=== PATIENT | female | born 1995 | race Caucasian/White ===

== ENCOUNTER 2016-11-30 09:54 | Emergency (ER) | payer BC ==
--- NOTE | 2016-11-30 10:14 | ED ---
Female Urogenital HPI - General Chief complaint: OB/Uterine Contractions Stated complaint: Bleeding Time Seen by Provider: 11/30/16 10:06 Source: patient, RN notes reviewed Mode of arrival: ambulatory Limitations: no limitations - History of Present Illness Initial comments: 21-year-old female presents emergency Department chief complaints vaginal bleeding. Patient states that she is A0 and currently approximately 7 weeks . Patient states she has an appointment with her OB Dr. Samuel on the of this month. Patient states that she started having vaginal bleeding this morning felt some clots. Patient states that she does have some mild cramping but she has had some on-and-off cramping early . She denies any dysuria or hematuria. Denies fever, chills, constipation or diarrhea. Last Menstrual Period: 10/11/16 - Related Data Home Medications Medication Instructions Recorded Confirmed Pnv,Calcium 72/Iron/Folic Acid 2 tab PO DAILY 11/30/16 11/30/16 [ Plus Tablet] Allergies Allergy/AdvReac Type Severity Reaction Status Date / Time No Known Allergies Allergy Verified 11/30/16 10:07 Review of Systems ROS Statement: Those systems with pertinent positive or pertinent negative responses have been documented in the HPI. ROS Other: All systems not noted in ROS Statement are negative. Past Medical History Past Medical History: No Reported History History of Any Multi-Drug Resistant Organisms: None Reported Past Surgical History: No Surgical Hx Reported Past Psychological History: No Psychological Hx Reported Smoking Status: Former smoker Past Alcohol Use History: Occasional Past Drug Use History: None Reported General Exam Limitations: no limitations General appearance: alert, in no apparent distress Head exam: Present: atraumatic, normocephalic, normal inspection Respiratory exam: Present: normal lung sounds bilaterally. Absent: respiratory distress, wheezes, rales, rhonchi, stridor Cardiovascular Exam: Present: regular rate, normal rhythm, normal heart sounds. Absent: systolic murmur, diastolic murmur, rubs, gallop, clicks GI/Abdominal exam: Present: soft, normal bowel sounds. Absent: distended, tenderness, guarding, rebound, rigid Back exam: Absent: CVA tenderness (R), CVA tenderness (L) Neurological exam: Present: alert, oriented X3, CN II-XII intact Skin exam: Present: warm, dry, intact, normal color. Absent: rash Course Vital Signs 11/30/16 09:58 Temperature 97.1 F L Pulse Rate 86 Respiratory 20 Rate Blood Pressure 124/63 O2 Sat by Pulse 100 Oximetry Medical Decision Making - Medical Decision Making 21-year-old female presented for vaginal bleeding early . Patient hCG is 3200. Patient ultrasound shows concern for possible miscarriage. I did tell the patient that she most likely is having miscarriage though she needs to have repeat hCG in 2 days for confirmation. Patient will follow-up with LIBRARY TECHNOLOGY INSTRUCTOR return parameters were discussed. Patient declined pelvic exam and she is currently bleeding. - Lab Data Result diagrams: 11/30/16 10:19 Lab Results 11/30/16 11/30/16 11/30/16 Range/Units 10: 10: 10:19 WBC 7.8 (3.8-10.6) k/uL RBC 4.44 (3.80-5.40) m/uL Hgb 14.0 (11.4-16.0) gm/dL Hct 40.4 (34.0-46.0) % MCV 90.9 (80.0-100.0) fL MCH 31.6 (25.0-35.0) pg MCHC 34.8 (31.0-37.0) g/dL RDW 12.2 (11.5-15.5) % Plt Count 295 (150-450) k/uL Neutrophils % 56 % Lymphocytes % 34 % Monocytes % 5 % Eosinophils % 3 % Basophils % 0 % Neutrophils # 4.4 (1.3-7.7) k/uL Lymphocytes # 2.6 (1.0-4.8) k/uL Monocytes # 0.4 (0-1.0) k/uL Eosinophils # 0.2 (0-0.7) k/uL Basophils # 0.0 (0-0.2) k/uL HCG, Quant mIU/mL Urine Color Colorless Urine Appearance Clear (Clear) Urine pH 6.0 (5.0-8.0) Ur Specific [place] 1.003 (1.001-1.035) Urine Protein Negative (Negative) Urine Glucose (UA) Negative (Negative) Urine Ketones Negative (Negative) Urine Blood Large H (Negative) Urine Nitrite Negative (Negative) Urine Bilirubin Negative (Negative) Urine Urobilinogen <2.0 (<2.0) mg/dL Ur Leukocyte Esterase Negative (Negative) Urine RBC 2 (0-5) /hpf Urine WBC <1 (0-5) /hpf Ur Squamous Epith Cells <1 (0-4) /hpf Blood Type O Positive Blood Type Recheck No 11/30/16 Range/Units 10:19 WBC (3.8-10.6) k/uL RBC (3.80-5.40) m/uL Hgb (11.4-16.0) gm/dL Hct (34.0-46.0) % MCV (80.0-100.0) fL MCH (25.0-35.0) pg MCHC (31.0-37.0) g/dL RDW (11.5-15.5) % Plt Count (150-450) k/uL Neutrophils % % Lymphocytes % % Monocytes % % Eosinophils % % Basophils % % Neutrophils # (1.3-7.7) k/uL Lymphocytes # (1.0-4.8) k/uL Monocytes # (0-1.0) k/uL Eosinophils # (0-0.7) k/uL Basophils # (0-0.2) k/uL HCG, Quant 3234.8 mIU/mL Urine Color Urine Appearance (Clear) Urine pH (5.0-8.0) Ur Specific [place] (1.001-1.035) Urine Protein (Negative) Urine Glucose (UA) (Negative) Urine Ketones (Negative) Urine Blood (Negative) Urine Nitrite (Negative) Urine Bilirubin (Negative) Urine Urobilinogen (<2.0) mg/dL Ur Leukocyte Esterase (Negative) Urine RBC (0-5) /hpf Urine WBC (0-5) /hpf Ur Squamous Epith Cells (0-4) /hpf Blood Type Blood Type Recheck Disposition Clinical Impression: Threatened miscarriage Disposition: HOME SELF-CARE Condition: Stable Instructions: Threatened Miscarriage (ED) Additional Instructions: Please return to the Emergency Department if symptoms worsen or any other concerns. Referrals: William Simeon MD [Primary Care Provider] - 1-2 days Time of Disposition: 11:28
[2016-11-30 10:37] LABS: Basophils % (A) 0 %; CH 30.7; CHCM 33.9; Eosinophils # (A) 0.2 k/uL (0-0.7); Eosinophils % (A) 3 %; HCT 40.4 % (34.0-46.0); HDW 2.24; Luc # (Auto) 0.14; Luc % (Auto) 2; Lymphocytes # (A) 2.6 k/uL (1.0-4.8); Lymphocytes % (A) 34 %; MCH 31.6 pg (25.0-35.0); MCHC 34.8 g/dL (31.0-37.0); MCV 90.9 fL (80.0-100.0); Mean Platelet Volume 6.9; Monocytes # (A) 0.4 k/uL (0-1.0); Monocytes % (A) 5 %; Neutrophils # (A) 4.4 k/uL (1.3-7.7); Neutrophils % (A) 56 %; RBC 4.44 m/uL (3.80-5.40); RDW 12.2 % (11.5-15.5); WBC 7.8 k/uL (3.8-10.6); WBC (Perox) 7.94
[2016-11-30 10:41] LABS: Appearance,Urine Clear (Clear); Bilirubin,Urine Negative (Negative); Glucose,Urine (UA) Negative (Negative); Ketones,Urine Negative (Negative); Leukocyte Esterase,Urine Negative (Negative); Nitrite,Urine Negative (Negative); Particle Count 1086; Protein,Urine Negative (Negative); RBC,Urine 2 /hpf (0-5); Specific Gravity,Urine 1.003 (1.001-1.035); Squamous Epithelial Cell,Urine <1 /hpf (0-4); UA Billing (MACRO vs. MICRO) MICRO; Urobilinogen,Urine <2.0 mg/dL (<2.0); WBC,Urine <1 /hpf (0-5)
--- NOTE | 2016-11-30 11:13 | US ---
EXAMINATION TYPE: US OB Transvaginal DATE OF EXAM: 11/30/2016 COMPARISON: NONE CLINICAL HISTORY: 21-year-old female Pain. bleeding, cramping x 1 day Date of LMP: 10/11/2016 Beta HcG (if available): Not provided. EXAM PERFORMED: Transvaginal (TV) FINDINGS: GESTATIONAL AGE / DATING Physician Established: Not established Dates by LMP: (7 weeks/1 days) EDC: 07/18/2017 Dates by First Scan: No previous Dates by Current Scan: No IUP seen MATERNAL ANATOMY Uterus: 8.4 x 3.8 x 3.2 cm Right Ovary: 3.2 x 2.0 x 1.7 cm Left Ovary: 1.9 x 1.6 x 1.3 cm Adnexa: WNL Presence of free fluid: small amount of free fluid in cul de sac. Presence of corpus luteal cyst: No Presence of subchorionic bleed: GESTATION / SURVEY CRL: No pole seen. MSD: Not seen ( weeks/ days) Yolk Sac (normal less than 6mm): Not seen Heart Rate: None Rhythm: None IUP: No IUP seen at this time There is heterogeneous thickening along the endometrium of the body and lower uterine segment measuring up to 2.5 cm long. However, the electric needle specialist notes that this appearance changed throughout the exam. The electric needle specialist also notes that the patient was actively bleeding at time of exam. IMPRESSION: Heterogeneous thickening of the endometrium of the lower uterine segment with changing appearance during the course of the exam and active bleeding. Findings are concerning for in progress. This should be confirmed with serial beta-hCG's and ultrasound follow-up as indicated. No visualized normal intrauterine . MTDD
[2016-11-30 11:52] VITALS: BP 135/61; PULSE 80; RESP 18; TEMP 98.3
== END 2016-11-30 11:45 | disposition home or self-care (01) ==
LOC: EC 09:54
DX: O20.0 Threatened abortion (principal); Z3A.01 Less than 8 weeks gestation of pregnancy; Z87.891 Personal history of nicotine dependence; Z79.899 Other long term (current) drug therapy
CPT/HCPCS: 36415; 76801; 76817; 81001; 84702; 85025; 86900; 86901; 99284

== ENCOUNTER → 2016-12-02 | Outpatient (CLI) | payer BC | LOC: LABWHC1 09:12 | PROVIDERS: ATTEND Physician Assistant | DX: O20.0 Threatened abortion (principal) | CPT/HCPCS: 36415; 84702 ==

== ENCOUNTER → 2018-06-13 | Outpatient (CLI) | payer BC, OTHER | LOC: LABWHC1 17:13 | PROVIDERS: ATTEND Obstetrics & Gynecology | DX: Z34.81 Encounter for supervision of other normal pregnancy, first trimester (principal); Z3A.00 Weeks of gestation of pregnancy not specified | CPT/HCPCS: 36415; 84702 ==

== ENCOUNTER → 2018-07-12 | Outpatient (CLI) | payer OTHER ==
--- NOTE | 2018-07-12 12:04 | US ---
EXAMINATION TYPE: Transabdominal DATE OF EXAM: 08/31/17 COMPARISON: NONE CLINICAL HISTORY: Z36 Confirm dates and viability. EXAM PERFORMED: Transabdominal (TA) EXAM MEASUREMENTS: GESTATIONAL AGE / DATING Physician Established: Not yet established Dates by LMP: (9 weeks/0 days) EDC: 02/14/2019 Dates by First Scan: No previous. Dates by Current Scan for: (9 weeks/0 days) EDC: 02/14/2019 MATERNAL ANATOMY Uterus: 9.9 x 5.8 x 4.8cm Right Ovary: 4.4 x 3.0 x 2.0cm Left Ovary: 3.3 x 3.8 x 1.4cm Post CDS / Adnexa: wnl Presence of free fluid: no Presence of corpus luteal cyst: in right ovary = 1.8 x 1.4 x 1.0cm Presence of subchorionic bleed: no GESTATION / SURVEY CRL: 2.4 (9 weeks/0 days) Yolk Sac (normal less than 6mm): not seen Heart Rate: 166 bpm Rhythm: Normal IUP: single Date of LMP: 05/10/2018 Beta HcG (if available): NA Single live intrauterine gestation is seen as gestational sac and pole are identified. Yolk sac is not clearly seen. No free fluid is seen in pelvic cul-de-sac. Both ovaries are seen. Within right ovary there is 1.8 cm peripheral hypoechoic lesion felt to reflec t corpus luteal cyst. No suspicious extraovarian adnexal lesions are present. IMPRESSION: Single live intrauterine gestation is confirmed, mean crown-rump length is 2.4 cm corresponding to 9 week 0 day old fetus.
== END ==
LOC: RADUSWWP 09:14
PROVIDERS: ATTEND Obstetrics & Gynecology
DX: Z36.9 Encounter for antenatal screening, unspecified (principal); Z3A.09 9 weeks gestation of pregnancy
CPT/HCPCS: 76801

== ENCOUNTER → 2018-11-16 | Outpatient (CLI) | payer BC, OTHER ==
[2018-11-16 11:34] LABS: Glucose 3 Hour, Gest 67 mg/dL
== END | disposition home or self-care (01) ==
LOC: LABWHC1 07:17
PROVIDERS: ATTEND Obstetrics & Gynecology
DX: O99.810 Abnormal glucose complicating pregnancy (principal)
CPT/HCPCS: 36415; 82951; 82952

== ENCOUNTER → 2018-12-22 | Outpatient (CLI) | payer BC, OTHER ==
[2018-12-22 18:57] VITALS: BP 129/69; PULSE 83; RESP 16; TEMP 98
== END | disposition home or self-care (01) ==
LOC: EDBD → FBPOP 17:59
PROVIDERS: ATTEND Obstetrics & Gynecology
DX: O24.410 Gestational diabetes mellitus in pregnancy, diet controlled (principal); Z3A.32 32 weeks gestation of pregnancy
CPT/HCPCS: 99213

== ENCOUNTER 2018-12-26 17:23 | Outpatient (CLI) | payer BC, OTHER | END 2018-12-26 18:10 | disposition home or self-care (01) | LOC: EDBD 17:23 → FBPOP 17:23 | PROVIDERS: ATTEND Obstetrics & Gynecology | DX: O24.419 Gestational diabetes mellitus in pregnancy, unspecified control (principal); Z3A.32 32 weeks gestation of pregnancy | CPT/HCPCS: 59025 ==

== ENCOUNTER 2018-12-29 17:41 | Observation (INO) | payer BC, OTHER ==
[2018-12-29 18:01] LABS: Basophils % (A) 0 %; Eosinophils # (A) 0.2 k/uL (0-0.7); Eosinophils % (A) 1 %; HCT 36.1 % (34.0-46.0); HGB 11.7 gm/dL (11.4-16.0); Lymphocytes # (A) 2.7 k/uL (1.0-4.8); Lymphocytes % (A) 22 %; MCH 28.7 pg (25.0-35.0); MCHC 32.5 g/dL (31.0-37.0); MCV 88.2 fL (80.0-100.0); Mean Platelet Volume 7.4; Monocytes # (A) 0.8 k/uL (0-1.0); Monocytes % (A) 6 %; Neutrophils # (A) 8.3 k/uL (1.3-7.7); Neutrophils % (A) 68 %; Platelet Count 288 k/uL (150-450); RBC 4.09 m/uL (3.80-5.40); RDW 13.5 % (11.5-15.5); WBC 12.1 k/uL (3.8-10.6)
[2018-12-29] MEDS ORDERED: LACTATED RINGERS 500 ML IV SCH ×2 (18:15→20:00)
[2018-12-29 18:26] LABS: Appearance,Urine Clear (Clear); Bilirubin,Urine Negative (Negative); Blood,Urine Negative (Negative); Color,Urine Yellow; Glucose,Urine (UA) Negative (Negative); Ketones,Urine Trace (Negative); Leukocyte Esterase,Urine Negative (Negative); Nitrite,Urine Negative (Negative); Protein,Urine Trace (Negative); Specific Gravity,Urine 1.029 (1.001-1.035)
[2018-12-29 18:35] VITALS: BP 154/87; PULSE 111; RESP 18; TEMP 98.9; BMI 34.6
[2018-12-29] MEDS: LACTATED RINGERS 1,000 ML IV SCH (19:00)
--- NOTE | 2018-12-29 19:29 | P.HPOB ---
History of Present Illness H&P Date: 12/29/18 Chief Complaint: bradycardia on nonstress testing This patient is a pleasant 23-year-old 2 para 0 female estimated date of confinement 02/14/2019 estimated gestational age 33-2/7 weeks who presented to labor and delivery this evening for a routine nonstress test secondary to gestational diabetes. Patient's care is per Dr. Samuel. Patient was diagnosed with gestational diabetes and has been followed by maternal medicine. Patient was also referred in the first trimester for a false positive RPR. Notes from maternal medicine felt that they thought this was a false positive test she had no evidence of syphilis. She does not believe any other testing was done at that time, other than a negative confirmatory test. Patient presented after work to seeing for her nonstress testing upon arrival to labor and delivery nurse placed on the monitor and was found to have heart tones in the 60s. Patient was repositioned and heart tones came up briefly the back into the 60s. This occurred for less than 1 minute. Following the rep ositioning heart tones were 120s to 130s and reassuring. At this time I ordered a ultrasound and biophysical profile both of which were normal. Patient denies vaginal bleeding or contractions. Patient is having positive movement prior to this. Review of Systems Genitourinary: Reports Menstruation: Reports amenorrhea Past Medical History Past Medical History: No Reported History Additional Past Medical History / Comment(s): Gestational diabetes. False positive RPR. History of Any Multi-Drug Resistant Organisms: None Reported Past Surgical History: No Surgical Hx Reported Additional Past Surgical History / Comment(s): 2004 eyelids. tonsils 1997 Past Anesthesia/Blood Transfusion Reactions: No Reported Reaction Past Psychological History: No Psychological Hx Reported Smoking Status: Never smoker Past Alcohol Use History: Occasional Past Drug Use History: None Reported - Past Family History Mother Family Medical History: Cancer Additional Family Medical History / Comment(s): breast ca Medications and Allergies Home Medications Medication Instructions Recorded Confirmed Type Pnv,Calcium 72/Iron/Folic Acid 2 tab PO DAILY 11/30/16 12/29/18 History [ Plus Tablet] Calcium Carbonate [Tums] 500 mg PO TID 12/29/18 12/29/18 History Allergies Allergy/AdvReac Type Severity Reaction Status Date / Time No Known Allergies Allergy Verified 12/29/18 17:52 Exam Vital Signs Temp Pulse Resp BP Pulse Ox 12/29/18 18:13 98.9 F 111 H 18 154/87 99 Intake and Output 12/29/18 12/29/18 12/29/18 06:59 14:59 22:59 Other: Weight 94.347 kg - OBG Physical Exam Vulva: both: normal Vagina: normal moisture, no discharge Cervix: no lesion (Cervix is closed), no discharge Results blood work shows she is O positive, rubella immune, hepatitis B n egative, RPR was positive with a negative confirmatory test. Glucola was abnormal and she had 2 abnormal 3 hour GTT values. Ultrasound today shows a appropriately grown fetus 2308 g which is the 61st percentile with a normal fluid index of 18. Biophysical 8 out of 8. Result Diagrams: 12/29/18 17:50 Abnormal Lab Results - Last 24 Hours (Table) 12/29/18 12/29/18 12/29/18 Range/Units 17:50 18:00 18:00 WBC 12.1 H (3.8-10.6) k/uL Neutrophils # 8.3 H (1.3-7.7) k/uL Urine Protein Trace H (Negative) Urine Ketones Trace H (Negative) U Random Total Protein 19 H (<12) mg/dL Assessment and Plan Assessment: This is a pleasant 23-year-old 2 para 0 female 33-2/7 weeks gestation who is presenting for routine nonstress testing for gestational diabetes is found to have an episode of bradycardia to the 60s. This did resolve with position changes and IV fluids. Ultrasound testing and current nonstress testing are reassuring. Biophysical was 8 out of 8. Due to the bradycardic episode I recommend this patient had prolonged monitoring overnight. I also discussed her false positive RPR test and did recommend testing for antiphospholipid syndrome. At this time there is no evidence of compromise. Most likely this is a transient cord event. (1) 33 weeks gestation of Current Visit: Yes Status: Acute Code(s): Z3A.33 - 33 WEEKS GESTATION OF SNOMED Code(s): 27364787 (2) bradycardia Current Visit: Yes Status: Acute Code(s): WPT5448 - SNOMED Code(s): 100017690 (3) False positive serological syphilis test Current Visit: Yes Status: Acute Code(s): R76.8 - OTHER SPECIFIED ABNORMAL IMMUNOLOGICAL FINDINGS IN SERUM SNOMED Code(s): 434338870
--- NOTE | 2018-12-29 19:30 | US ---
EXAMINATION TYPE: US OB >= 14 wk fetus DATE OF EXAM: 12/29/2018 COMPARISON: US CLINICAL HISTORY: decelerations, 33 weeks, Gestational diabetes. TECHNIQUE: Transabdominal (TA) GESTATIONAL AGE / DATING Physician Established: (33 weeks/2 days) EDC: 02/14/2019 Dates by LMP: 05/10/2018 (33 weeks/2 days) EDC: 02/14/2019 Dates by First Scan: (33 weeks/2 days) EDC: 02/14/2019 Dates by Current Scan: (33 weeks/2 days) EDC: 02/14/2019 SURVEY IUP: Single PLACENTA: Anterior PREVIA: No Previa ОЛЕГ: 17.99 cm Normal CERVICAL LENGTH (transabdominal: norm > 3.0cm): 3.28 cm Limited, transvaginal not to be performed per nurse. BIOMETRY PRESENTATION: Vertex LIE: Longitudinal BPD: 8.48 cm 34 weeks / 1 day HC: 30.35 cm 33 weeks / 5 days AC: 30.43 cm 34 weeks / 3 days FL: 6.40 cm 33 weeks / 0 days ESTIMATED WEIGHT IN GRAMS: 2308 grams ESTIMATED WEIGHT IN LBS/OZ: 5 lbs. 1 oz. WEIGHT PERCENTAGE BASED ON ESTABLISHED DATES: 61.8% HC/AC: 1.00 Normal FL/AC: 21.03 Normal HEART RATE: 130 bpm RHYTHM: Normal IMPRESSION: No acute process; single viable IUP as detailed.
--- NOTE | 2018-12-29 19:33 | US ---
EXAMINATION TYPE: US OB BPP wo non-stress DATE OF EXAM: 12/29/2018; 6:41 PM COMPARISON: US CLINICAL HISTORY: decelerations. decelerations. Hx gestational diabetes. DENIS 02/14/2019. 3 3w 2 d. EXAM PERFORMED: Transabdominal (TA) BPP PARAMETERS: PRESENTATION: Vertex LIE: Longitudinal?? HEART RATE: 151 bpm RHYTHM: Normal ОЛЕГ: 15.30 DIAPHRAGM IMAGED: Yes BPP SCORIN. Breathin (1 episode of breathing of 30 second duration in 30 minutes of scanning time) 2. Movement: 2 (at least 3 discrete body movements in 30 minutes) 3. Tone: 2 (1 episode of active flexion/extension of limb) 4. ОЛЕГ: 2 (ОЛЕГ index > 5cm) IMPRESSION: TOTAL SCORE: 8 / 8
[2018-12-29 19:34] LABS: ALT <6 U/L (9-52); AST 20 U/L (14-36); African American GFR (CKD) >90 (>60 ml/min/1.73 sqM); Blood Urea Nitrogen 11 mg/dL (7-17); LDH 429 U/L (313-618); Uric Acid 3.6 mg/dL (3.7-7.4)
[2018-12-29 19:49] LABS: INR 0.8 (<1.2); Prothrombin Time 9.3 sec (9.0-12.0)
[2018-12-29 19:54] LABS: Glucose,Whole Blood 82 mg/dL (75-99)
[2018-12-29] MEDS ORDERED: LACTATED RINGERS 500 ML IV ONE (19:56)
[2018-12-29] MEDS ORDERED: LACTATED RINGERS 1,000 ML IV SCH (20:00)
[2018-12-30] MEDS: LACTATED RINGERS 1,000 ML IV SCH (03:04)
[2018-12-30 07:50] LABS: Glucose,Whole Blood 107 mg/dL (75-99)
--- NOTE | 2018-12-30 09:02 | P.DS ---
Providers Date of admission: 12/29/18 17:52 Expected date of discharge: 12/30/18 Attending physician: Rosmery Samuel Primary care physician: Stated None Hospital Course: This is a 23-year-old female 1 para 0 at 32-3/7 weeks gestation. She came in yesterday for a routine nonstress test due to gestational diabetes. When they were working her up to the monitor apparently an audible deceleration was noted at about 60s to 90s. Since that time the strip has been very reactive with an occasional isolated variable deceleration. Good variability has been noted throughout. There are occasional contractions but her cervix is closed. She did have a couple elevated blood pressures and therefore lab work was drawn. All other preeclampsia labs were negative. She denies any other symptoms. Ultrasound was performed and was within normal limits. She has been feeling good movement and occasional contractions. Her cervix this morning is still closed/50%/-2 station. She will be discharged home today and return on Wednesday for another nonstress test. She has an office visit with me next . She is advised that if she does feel any decreased movement or have any other symptoms of headaches, blurry vision, epigastric pain, or swelling in her hands and face, that she should come to the hospital immediately for evaluation. She is also advised that she feels regular strong contractions that she should also come to the hospital for evaluation. Patient Condition at Discharge: Stable Plan - Discharge Summary New Discharge Prescriptions: No Action Pnv,Calcium 72/Iron/Folic Acid [ Plus Tablet] 2 tab PO DAILY Calcium Carbonate [Tums] 500 mg PO TID Discharge Medication List Pnv,Calcium 72/Iron/Folic Acid [ Plus Tablet] 2 tab PO DAILY 11/30/16 [History] Calcium Carbonate [Tums] 500 mg PO TID 12/29/18 [History] Follow up Appointment(s)/Referral(s): Rosmery Samuel DO [Doctor of Osteopathic Medicine] - 01/05/19 Discharge Disposition: HOME SELF-CARE
[2018-12-30 18:14] LABS: Cardiolipin Ab IgG Interp NEGATIVE (NEGATIVE); Cardiolipin Ab IgM Interp Positive (NEGATIVE); Cardiolipin IgM Antibody 40.7 U/mL
[2019-01-02 13:08] LABS: APTT 34 Sec(s) (<43); Dilute Russell Viper Venom 32 Sec(s) (<44)
== END 2018-12-30 09:15 | disposition home or self-care (01) ==
LOC: FBPOP 17:41 → 4FBP 17:52
PROVIDERS: ADMIT Obstetrics & Gynecology; ATTEND Obstetrics & Gynecology
DX: O76 Abnormality in fetal heart rate and rhythm complicating labor and delivery (principal); Z3A.33 33 weeks gestation of pregnancy; O24.419 Gestational diabetes mellitus in pregnancy, unspecified control; Z80.3 Family history of malignant neoplasm of breast
CPT/HCPCS: 59025; 96360; 96361; 86900; 86901; 86146; 82570; 84156; 82565; 83615; 84450; 84460; 84520; 84550; 85025; 85610; 85730; 86850; 85613; 81003; 86147; 76805; 76819; G0378 ×2

== ENCOUNTER 2019-01-09 17:19 | Outpatient (CLI) | payer BC, OTHER ==
[2019-01-09 17:35] VITALS: BP 131/79; PULSE 87; RESP 14; TEMP 98.1
--- NOTE | 2019-01-09 19:48 | US ---
EXAMINATION TYPE: US OB BPP wo non-stress DATE OF EXAM: 01/09/2019 COMPARISON: US CLINICAL HISTORY: fht. FHT. Gestational diabetes. . Former smoker. 34w 6 d. DENIS: 02/14/2019. Hx miscarriage. EXAM PERFORMED: Transabdominal (TA) BPP PARAMETERS: PRESENTATION: Cephalic LIE: Long?? HEART RATE: 138 bpm RHYTHM: Normal ОЛЕГ: 14.61 cm. DIAPHRAGM IMAGED: Yes BPP SCORIN. Breathin (1 episode of breathing of 30 second duration in 30 minutes of scanning time) 2. Movement: 2 (at least 3 discrete body movements in 30 minutes) 3. Tone: 2 (1 episode of active flexion/extension of limb) 4. ОЛЕГ: 2 (ОЛЕГ index > 5cm) TOTAL SCORE: 6 / 8 *Unable to visualize 30 second episode of breathing within 30 minutes scan. The biophysical profile score is 6 out of 8 with no breathing movement seen during the exam.
--- NOTE | 2019-01-10 08:36 | P.MSEPDOC ---
Presenting Problems - Arrival Data Date of Arrival on Unit: 01/09/19 Time of Arrival on Unit: 17:30 Mode of Transport: Portable - Complaint OB-Reason for Admission/Chief Complaint: NST Medical History - Information : 2 Para: 0 Term: 0 : 0 Abortions: Spontaneous or Elective: 0 Number of Living Children: 0 - Gestational Age Gestational Age by DENIS (wks/days): 34 Weeks and 6 Days - History Complications: GDM Review of Systems - Review of Systems Constitutional: No problems Breast: No problems ENT: No problems Cardiovascular: No problems Respiratory: No problems Gastrointestinal: No problems Genitourinary: No problems Musculoskeletal: No problems Neurological: No problems Skin: No problems Vital Signs - Temperature Temperature: 98.1 F Temperature Source: Oral - Pulse Right Pulse Rate: 87 Pulse Assessment Method: Automatic Cuff - Respirations Respiratory Rate: 14 Oxygen Delivery Method: Room Air - Blood Pressure Right Arm Blood Pressure: 131/79 Blood Pressure Mean: 96 Blood Pressure Source: Automatic Cuff Physician Notification (Post) - Physician Notified Physician Notified Date: 01/09/19 Physician Notified Time: 18:24 Physician/Practitioner Notified:: watson Spoke With: watson - Notification Comment Comment: reported nst, reported decel, dr chaudhari order bpp, bpp complete 01/07. offers pt to spend night for continued monitoring or discharge home with instruction and follow up wed or . Disposition - Disposition OB Disposition: Discharge to home Discharge Date: 01/09/19 Discharge Time: 19:42 I agree with the RN Medical Screening Exam: Yes Risk & Benefit of care provided described in d/c instruction: Yes Diagnosis: GESTATIONAL DIABETES MELLITUS IN , DIET CONTROLLED
== END 2019-01-09 19:42 | disposition home or self-care (01) ==
LOC: FBPOP 17:19
PROVIDERS: ATTEND Obstetrics & Gynecology
DX: O24.410 Gestational diabetes mellitus in pregnancy, diet controlled (principal); Z3A.34 34 weeks gestation of pregnancy
CPT/HCPCS: 59025; 76819; 99213

== ENCOUNTER 2019-01-12 18:26 | Outpatient (CLI) | payer BC, OTHER ==
--- NOTE | 2019-02-09 17:44 | P.MSEPDOC ---
Presenting Problems - Arrival Data Date of Arrival on Unit: 01/12/19 Time of Arrival on Unit: 18:26 Mode of Transport: Ambulatory Disposition - Disposition Discharge Date: 01/12/19 Discharge Time: 18:58 I agree with the RN Medical Screening Exam: No Physician's MSE Comment: There is incomplete documentation by nursing staff on this document and therefore I cannot agree to it. Risk & Benefit of care provided described in d/c instruction: No Diagnosis: RELATED CONDITIONS, UNSP, UNSPECIFIED TRIMESTER
== END 2019-01-12 18:59 | disposition home or self-care (01) ==
LOC: FBPOP 18:26
PROVIDERS: ATTEND Obstetrics & Gynecology
DX: O26.90 Pregnancy related conditions, unspecified, unspecified trimester (principal); Z3A.00 Weeks of gestation of pregnancy not specified
CPT/HCPCS: 59025; 99213

== ENCOUNTER 2019-01-20 17:09 | Outpatient (CLI) | payer BC, OTHER ==
--- NOTE | 2019-02-09 17:37 | P.MSEPDOC ---
Presenting Problems - Arrival Data Date of Arrival on Unit: 01/20/19 Time of Arrival on Unit: 17:09 Mode of Transport: Ambulatory Disposition - Disposition Discharge Date: 01/20/19 Discharge Time: 18:05 I agree with the RN Medical Screening Exam: No Physician's MSE Comment: There is nothing documented in this MSE by nursing and therefore I cannot agree to it. Risk & Benefit of care provided described in d/c instruction: No Diagnosis: RELATED CONDITIONS, UNSP, UNSPECIFIED TRIMESTER
== END 2019-01-20 18:05 | disposition home or self-care (01) ==
LOC: FBPOP 17:09
PROVIDERS: ATTEND Obstetrics & Gynecology
DX: O26.893 Other specified pregnancy related conditions, third trimester (principal)
CPT/HCPCS: 59025

== ENCOUNTER 2019-01-26 17:04 | Outpatient (CLI) | payer BC, OTHER ==
[2019-01-26 17:43] VITALS: BP 125/78; PULSE 90; RESP 16; TEMP 97.2
--- NOTE | 2019-02-23 10:26 | P.MSEPDOC ---
Presenting Problems - Arrival Data Date of Arrival on Unit: 01/26/19 Time of Arrival on Unit: 17:04 Mode of Transport: Ambulatory Vital Signs - Temperature Temperature: 97.2 F Temperature Source: Temporal Artery Scan - Pulse Right Brachial Pulse Rate: 90 Pulse Assessment Method: Automatic Cuff - Respirations Respiratory Rate: 16 Oxygen Delivery Method: Room Air - Blood Pressure Right Arm Blood Pressure: 125/78 Blood Pressure Mean: 93 Blood Pressure Source: Automatic Cuff Disposition - Disposition OB Disposition: Discharge to home Discharge Date: 01/26/19 Discharge Time: 17:41 I agree with the RN Medical Screening Exam: Yes Risk & Benefit of care provided described in d/c instruction: Yes Diagnosis: GESTATIONAL DIABETES MELLITUS IN , DIET CONTROLLED
== END 2019-01-26 17:41 | disposition home or self-care (01) ==
LOC: FBPOP 17:04
PROVIDERS: ATTEND Obstetrics & Gynecology
DX: O24.419 Gestational diabetes mellitus in pregnancy, unspecified control (principal); Z3A.37 37 weeks gestation of pregnancy
CPT/HCPCS: 59025

== ENCOUNTER 2019-01-30 14:20 | Outpatient (CLI) | payer BC, OTHER | END 2019-01-30 15:05 | disposition home or self-care (01) | LOC: FBPOP 14:20 | PROVIDERS: ATTEND Obstetrics & Gynecology | DX: O24.419 Gestational diabetes mellitus in pregnancy, unspecified control (principal); Z3A.37 37 weeks gestation of pregnancy | CPT/HCPCS: 99213 ==

== ENCOUNTER 2019-02-09 05:40 | Inpatient (IN) | payer BC, OTHER ==
--- NOTE | 2019-02-08 19:31 | P.HPOB ---
History of Present Illness H&P Date: 02/08/19 Chief Complaint: Gestational diabetes, induction of labor This is a 23 y.o. female, 2, para 0, with an estimated date of confinement of 02/14/2019, estimated gestational age of 39-2/7 weeks, who presents for induction of labor due to gestaional diabetes, diet-controlled. She has been doing twice weekly nonstress tests and being seen once week at maternal- medicine. Her sugars have been well-controlled on diet. She is feeling frequent contractions and pressure. She denies any rupture of membranes. labs: GC/Chlamydia/Trichomonas-negative Hepatitis B surface antigen-negative RPR-reactive, confirmatory test-negative Rubella-immune Blood type-O+ Antibody screen-negative HIV-nonreactive Hemoglobin-12.4 Random glucose-80 1 hour Glucola-172 Three-hour Glucola-2 values high Group B streptococcus-negative Obstetrical history: . History of 1 miscarriage Gynecologic history: No history of sexual transmitted diseases. Social history: She is . She works at a [employer] office. Review of Systems Constitutional: Denies chills, Denies fever Eyes: denies blurred vision, denies pain Ears, nose, mouth and throat: Denies headache, Denies sore throat Cardiovascular: Denies chest pain, Denies shortness of breath Respiratory: Denies cough Gastrointestinal: Reports abdominal pain (Irregular contractions) Genitourinary: Reports pelvic pain, Reports Musculoskeletal: Reports low back pain Integumentary: Denies pruritus, Denies rash Neurological: Denies numbness, Denies weakness Psychiatric: Denies anxiety, Denies depression Past Medical History Past Medical History: No Reported History Additional Past Medical History / Comment(s): Gestational diabetes. False posit manuela RPR. History of Any Multi-Drug Resistant Organisms: None Reported Past Surgical History: No Surgical Hx Reported Additional Past Surgical History / Comment(s): 2004 eyelids. tonsils 1997 Past Anesthesia/Blood Transfusion Reactions: No Reported Reaction Past Psychological History: No Psychological Hx Reported Smoking Status: Never smoker Past Alcohol Use History: None Reported Past Drug Use History: None Reported - Past Family History Mother Family Medical History: Cancer Additional Family Medical History / Comment(s): breast ca Medications and Allergies Home Medications Medication Instructions Recorded Confirmed Type Pnv,Calcium 72/Iron/Folic Acid 1 tab PO DAILY 11/30/16 01/30/19 History [ Plus Tablet] Calcium Carbonate [Tums] 500 mg PO TID 12/29/18 01/30/19 History Allergies Allergy/AdvReac Type Severity Reaction Status Date / Time No Known Allergies Allergy Verified 01/30/19 14:31 Exam Osteopathic Statement: *. No significant issues noted on an osteopathic structural exam other than those noted in the History and Physical/Consult. HEENT: Within normal limits Heart: Regular rate and rhythm Lungs: Clear to auscultation bilaterally Abdomen: Cervix: 1-1/2 cm/70%/-1 station heart tones: 140s by Doppler Extremities: Trace edema Assessment and Plan (1) 39 weeks gestation of Status: Acute Code(s): Z3A.39 - 39 WEEKS GESTATION OF SNOMED Code(s): 75836763 (2) Gestational diabetes Status: Acute Code(s): O24.419 - GESTATIONAL DIABETES MELLITUS IN , UNSP CONTROL SNOMED Code(s): 58687807 Plan: Proceed with oxytocin induction of labor. Will monitor sugars during labor. Expectant management. Epidural anesthesia if desired.
[2019-02-09] MEDS ORDERED: LIDOCAINE 0.5% (PF) 5 MG/ML (50 ML SDV) SQ PRN (06:03)
[2019-02-09] MEDS ORDERED: OXYTOCIN 10 UNIT/ML 1 ML VIAL IM PRN (06:03)
[2019-02-09] MEDS ORDERED: OXYTOCIN 30 UNITS/500 ML NS 30 UNIT in SALINE 1 500ML.BAG IV SCH (06:03)
[2019-02-09] MEDS ORDERED: METHYLERGONOVINE 0.2 MG/ML 1 ML AMP IM PRN (06:03)
[2019-02-09] MEDS ORDERED: CARBOPROST TROMETHAMINE 250 MCG/ML 1 ML AMP IM PRN (06:03)
[2019-02-09] MEDS ORDERED: TERBUTALINE 1 MG/ML VIAL SQ PRN (06:03)
[2019-02-09] MEDS ORDERED: LIDOCAINE 1% 20 ML VIAL (10MG/ML) FOR IV START INTRADERMA PRN (06:03)
[2019-02-09] MEDS: LACTATED RINGERS 1,000 ML IV SCH ×2 (06:31→11:59)
[2019-02-09 06:32] LABS: Glucose,Whole Blood 93 mg/dL (75-99)
[2019-02-09 06:36] VITALS: BMI 36.3
[2019-02-09 06:41] LABS: Basophils # (A) 0.1 k/uL (0-0.2); Basophils % (A) 1 %; Eosinophils # (A) 0.2 k/uL (0-0.7); Eosinophils % (A) 2 %; HCT 35.7 % (34.0-46.0); HGB 11.8 gm/dL (11.4-16.0); Lymphocytes # (A) 2.7 k/uL (1.0-4.8); Lymphocytes % (A) 25 %; MCV 87.8 fL (80.0-100.0); Mean Platelet Volume 8.6; Monocytes # (A) 0.5 k/uL (0-1.0); Monocytes % (A) 5 %; Neutrophils # (A) 7.3 k/uL (1.3-7.7); Neutrophils % (A) 67 %; Platelet Count 265 k/uL (150-450); RBC 4.07 m/uL (3.80-5.40); RDW 15.8 % (11.5-15.5)
[2019-02-09 08:22] LABS: Glucose,Whole Blood 85 mg/dL (75-99)
[2019-02-09 10:18] LABS: Glucose,Whole Blood 103 mg/dL (75-99)
[2019-02-09] MEDS ORDERED: SODIUM CHLORIDE 0.9% 100 ML BAG ONE (10:42)
[2019-02-09] MEDS ORDERED: fentaNYL (PF) 50 MCG/ML 5 ML AMP ONE (10:42)
[2019-02-09] MEDS ORDERED: ROPIVACAINE 5MG/ML 20ML VIAL ONE (10:42)
[2019-02-09] MEDS ORDERED: diphenhydrAMINE 25 MG CAP PO PRN (12:34)
[2019-02-09] MEDS ORDERED: diphenhydrAMINE 50 MG/ML 1 ML VIAL IVP PRN ×2 (12:34)
[2019-02-09] MEDS ORDERED: WITCH HAZEL 1 EACH MED..PAD TOPICAL PRN (12:34)
[2019-02-09] MEDS ORDERED: SIMETHICONE 80 MG CHEWABLE PO PRN (12:34)
[2019-02-09] MEDS ORDERED: BENZOCAINE/MENTHOL SPRAY 1 GM/SPRAY AEROSOL TOPICAL PRN (12:34)
[2019-02-09] MEDS ORDERED: HYDROCORTISONE 2.5% RECTAL CREAM 30 GM TUBE RECTAL PRN (12:34)
[2019-02-09] MEDS ORDERED: OXYTOCIN 20 UNITS/1000 ML NS 1,000 ML IV SCH (12:34)
[2019-02-09] MEDS ORDERED: LANOLIN CREAM 5 GM TUBE TOPICAL PRN (12:34)
[2019-02-09] MEDS ORDERED: ACETAMINOPHEN TAB 325 MG TAB PO PRN (12:34)
[2019-02-09] MEDS ORDERED: ZOLPIDEM 5 MG TAB PO PRN (12:34)
[2019-02-09] MEDS ORDERED: diphenhydrAMINE 50 MG CAP PO PRN (12:34)
[2019-02-09] MEDS: IBUPROFEN 600 MG TAB PO PRN ×2 (14:32→20:56)
[2019-02-09 17:23] LABS: Hemoglobin A1C 5.5 % (4.0-6.0)
--- NOTE | 2019-02-09 17:31 | P.PROBDLV ---
Vaginal Delivery Note - . Vaginal Delivery Note: The patient progressed to complete dilation after oxytocin induction of labor and artificial rupture of membranes with clear fluid noted. She did receive an epidural anesthesia but only had the test dose before she was found to be complete. Once she was complete, she began pushing. 's head came to a crown. With one further push, the infant's head delivered across the perineum followed by the anterior shoulder. Nose and mouth were bulb suctioned at the perineum prior to delivery. Nuchal cord times one was noted. With one further push, the delivered reducing nuchal cord around the body during delivery. Infant was placed on mother's abdomen. A viable male was noted with scores of 9 at 1 minute and 9 at 5 minutes. Infant weight was 7 pounds 1.4 ounces. The placenta delivered shortly thereafter, intact, with a three- vessel cord. Uterus contracted well after oxytocin was given and uterine massage was carried out. Inspection of the perineum revealed a small second- degree perineal laceration. This area was anesthetized with 1% lidocaine and then sutured with 3-0 and 2-0 Vicryl suture in the usual multilayer fashion. Estimated blood loss is approximately 200 mL's. Both mother and were in stable condition.
[2019-02-09] MEDS ORDERED: SENNOSIDES-DOCUSATE SODIUM 1 EACH TAB PO SCH (20:00)
[2019-02-10 07:08] LABS: Basophils % (A) 0 %; Eosinophils # (A) 0.1 k/uL (0-0.7); Eosinophils % (A) 1 %; HCT 32.7 % (34.0-46.0); Lymphocytes # (A) 2.9 k/uL (1.0-4.8); Lymphocytes % (A) 23 %; MCH 29.6 pg (25.0-35.0); MCHC 33.6 g/dL (31.0-37.0); MCV 88.1 fL (80.0-100.0); Mean Platelet Volume 8.1; Monocytes # (A) 0.6 k/uL (0-1.0); Monocytes % (A) 5 %; Neutrophils % (A) 70 %; Platelet Count 208 k/uL (150-450); RBC 3.72 m/uL (3.80-5.40); RDW 14.5 % (11.5-15.5); WBC 12.7 k/uL (3.8-10.6)
--- NOTE | 2019-02-10 07:44 | P.DS ---
Providers Date of admission: 02/09/19 05:40 Expected date of discharge: 02/10/19 Attending physician: Rosmery Samuel Primary care physician: Siri Delgado - Discharge Diagnosis(es) (1) 39 weeks gestation of Current Visit: No Status: Acute (2) Gestational diabetes Current Visit: No Status: Acute Hospital Course: This is a 23-year-old female 2 para 0 at 39-2/7 weeks who presented for induction of labor secondary to gestational diabetes diet controlled. She underwent oxytocin induction of labor and artificial rupture membranes with clear fluid noted. She delivered a viable male infant on 02/09/2019 with scores of 9 at 1 minute and 9 at 5 minutes and weight of 7 pounds 1.4 ounces. Her course has been uncomplicated. Lochia is decreasing. She is bottle feeding. Pain is fairly well controlled. Vital signs are stable. Abdomen is soft with fundus firm and nontender. Extremities show negative Homans. Impression is status post vaginal delivery day #1. Plan is to discharge home today. Routine instructions are given. She will be given a prescription for ibuprofen. She is advised to follow up in the office in 6 weeks for check. She is advised to call the office if she has any further questions or concerns prior to her appointment time. Procedures: Oxytocin induction of labor Spontaneous vaginal delivery of a viable male on 02/09/2019 Patient Condition at Discharge: Stable Plan - Discharge Summary New Discharge Prescriptions: New Ibuprofen [Motrin] 600 mg PO Q6HR PRN #60 tab PRN Reason: Mild Pain Or Fever >= 100.5 Continue Pnv,Calcium 72/Iron/Folic Acid [ Plus Tablet] 1 tab PO DAILY No Action Calcium Carbonate [Tums] 500 mg PO TID Discharge Medication List Pnv,Calcium 72/Iron/Folic Acid [ Plus Tablet] 1 tab PO DAILY 11/30/16 [History] Calcium Carbonate [Tums] 500 mg PO TID 12/29/18 [History] Ibuprofen [Motrin] 600 mg PO Q6HR PRN #60 tab 02/10/19 [Rx] Follow up Appointment(s)/Referral(s): Rosmery Samuel DO [Doctor of Osteopathic Medicine] - 1 Week Activity/Diet/Wound Care/Special Instructions: Instructions 1. Do not begin any exercise program for 3 weeks. 2. Do not resume sexual relations for 3 weeks or longer if uncomfortable. 3. You may take tub baths or showers at any time. 4. You may use tampons if desired after 3 weeks. 5. Keep the area of episiotomy (stitches) clean and dry. 6. If you are not nursing, wear a good fitting, supportive bra during the day and limit fluid intake for at least 1 week to prevent breast engorgement. 7. Call the office, [phone], within the next week to make appointment for your 6 week checkup if it has not already been made. 8. Report any of the following occurrences to the doctor promptly: a. Heavy, excessive bleeding b. Chills, fever c. Burning or frequency of urination d. Pain or redness and breasts if nursing e. Increasing pain or swelling in episiotomy (stitches). In addition to the above instructions, the following additional should be followed: 1. No heavy lifting or straining (exercising) until after 6 week checkup. 2. Keep abdominal incision clean and dry: You may wear a dressing if more comfortable. 3. Make office appointment for 10 days after going home or as instructed by her doctor. Discharge Disposition: HOME SELF-CARE
[2019-02-10] MEDS: IBUPROFEN 600 MG TAB PO PRN (08:31)
[2019-02-10 09:54] VITALS: BP 129/74; PULSE 111; RESP 16; TEMP 97.9
== END 2019-02-10 13:30 | disposition home or self-care (01) | DRG 807 ==
LOC: 4FBP 05:40
PROVIDERS: ADMIT Obstetrics & Gynecology; ATTEND Obstetrics & Gynecology
PROC: 10907ZC Drainage of Amniotic Fluid, Therapeutic from Products of Conception, Via Natural or Artificial Opening (ICD-10-PCS; principal; 2019-02-09)
PROC: 10E0XZZ Delivery of Products of Conception, External Approach (ICD-10-PCS; principal; 2019-02-09)
PROC: 00HU33Z Insertion of Infusion Device into Spinal Canal, Percutaneous Approach (ICD-10-PCS; principal; 2019-02-09)
PROC: 3E0R3BZ Introduction of Anesthetic Agent into Spinal Canal, Percutaneous Approach (ICD-10-PCS; principal; 2019-02-09)
PROC: 0KQM0ZZ Repair Perineum Muscle, Open Approach (ICD-10-PCS; principal; 2019-02-09)
DX: O24.420 Gestational diabetes mellitus in childbirth, diet controlled (principal); Z37.0 Single live birth; Z80.3 Family history of malignant neoplasm of breast; Z3A.39 39 weeks gestation of pregnancy; O69.81X0 Labor and delivery complicated by cord around neck, without compression, not applicable or unspecified
CPT/HCPCS: 83036; 85025; 86850; 86900; 86901; 88307

== ENCOUNTER → 2021-07-17 | Outpatient (CLI) | payer BC | END | disposition home or self-care (01) | LOC: RADMRIMAIN 12:23 | PROVIDERS: ATTEND Nurse Practitioner Family | DX: Z53.9 Procedure and treatment not carried out, unspecified reason (principal) ==

== ENCOUNTER → 2021-07-18 | Outpatient (CLI) | payer BC ==
--- NOTE | 2021-07-18 20:01 | MR ---
EXAMINATION TYPE: MR pituitary wo/w con DATE OF EXAM: 07/18/2021 COMPARISON: CT brain 2011. HISTORY: R89.1 Decreased Prolactin level, abnormal hormone levels TECHNIQUE: Multiplanar, multisequence images of the brain and brainstem is performed without and with IV contras t, utilizing 8.5 mL intravenous Gadavist . Pituitary gland protocol. FINDINGS: Pituitary gland normal in size with an sella turcica. Postcontrast images show no areas of nonenhancement to suggest microadenoma. Suprasellar cistern is maintained. Optic chiasm is not efface d. Pituitary stalk shows normal enhancement in the midline. Midline structures demonstrate normal morphology. The craniocervical junction appears within normal limits. No gross hydrocephalus. IMPRESSION: No MRI evidence for pituitary microadenomas or macroadenoma
== END | disposition home or self-care (01) ==
LOC: RADMRIMAIN 06:17
PROVIDERS: ATTEND Nurse Practitioner Family
DX: R89.1 Abnormal level of hormones in specimens from other organs, systems and tissues (principal)
CPT/HCPCS: 70553; A9585

== ENCOUNTER → 2022-04-30 | Outpatient (CLI) | payer BC ==
--- NOTE | 2022-04-30 16:01 | US ---
EXAMINATION TYPE: US pelvic complete DATE OF EXAM: 04/30/2022 COMPARISON: NONE CLINICAL HISTORY: 26-year-old female N94.6 DYSMENORRHEA, UNSP. , patient unable to get a fter 2 years, always TECHNIQUE: TA. Transabdominal sonographic images of the pelvis were acquired. *Patient opted to kaushal t additional 30 mins to fill bladder Date of LMP: 04-17-2022 FINDINGS: EXAM MEASUREMENTS: Uterus: 9.2 x 5.8 x 4.0 cm Endometrial Stripe: 1.3-1.5 cm Right Ovary: 4.4 x 2.9 x 2.2 cm for a volume of 14.0 mL. Left Ovary: 4.1 x 2.3 x 2.7 cm for a volume of 12.7 mL. 1. Uterus: Anteverted and otherwise wnl 2. Endometrium: wnl 3. Right Ovary: follicle seen = 1.6 x 1.4 x 1.2cm 4. Left Ovary: follicle seen = 1.4 x 1.7 x 1.5cm 5. Bilateral Adnexa: wnl 6. Posterior cul-de-sac: wnl IMPRESSION: 1. Endometrial stripe measuring up to 1.5 cm. This should correspond to the secretory phase of the me nstrual cycle. 2. A dominant follicle in either ovary measuring up to 1.6 cm on the right and 1.7 cm on the left.
== END | disposition home or self-care (01) ==
LOC: RADUSWWP 12:07
PROVIDERS: ATTEND Obstetrics & Gynecology
DX: N94.6 Dysmenorrhea, unspecified (principal)
CPT/HCPCS: 76856